=== PATIENT | male | born 1950 | race Two or more races ===

== ENCOUNTER 2016-07-20 11:21 | Inpatient (IN) | payer OTHER ==
[2016-07-20 15:11] VITALS: BMI 25.1
--- NOTE | 2016-07-20 18:42 | HP ---
CIWA Score - CIWA Score Nausea/Vomitin-Mild Nausea/No Vomiting Muscle Tremors: 4-Moderate,w/Arms Extend Anxiety: 4-Mod. Anxious/Guarded Agitation: 4-Moderately Restless Paroxysmal Sweats: 1-Minimal Palms Moist Orientation: 1-Uncertain about Date Tacttile Disturbances: 0-None Auditory Disturbances: 0-None Visual Disturbances: 0-None Headache: 0-None Present CIWA-Ar Total Score: 15 Admission ROS BHS - HPI Chief Complaint: WITHDRAWAL SX Allergies/Adverse Reactions: Allergies Allergy/AdvReac Type Severity Reaction Status Date / Time No Known Allergies Allergy Verified 07/20/16 17:36 History of Present Illness: 66 YEARS OLD MALE WITH LONG HISTORY OF ALCOHOL NICOTINE DEPENDENCE HAS POSITIVE PPD HEPATITIS C AND MULTIPLE MISSING TEETH DENIES MENTAL ILLNESS IS ADMITTED TO DETOX Exam Limitations: No Limitations - Ebola screening Have you traveled outside of the country in the last 21 days: No Have you had contact with anyone from an Ebola affected area: No Have you been sick,other than usual withdrawal symptoms: No Do you have a fever: No - Review of Systems Constitutional: Chills, Changes in sleep, Weight Stable EENT: reports: Cataracts (LEFT EYE), Dental Problems (MULTIPL TEETH MISSING) Respiratory: reports: No Symptoms reported Cardiac: reports: No Symptoms Reported GI: reports: Nausea, Poor Fluid Intake, Abdominal cramping : reports: No Symptoms Reported Musculoskeletal: reports: No Symptoms Reported Integumentary: reports: No Symptoms Reported Neuro: reports: Tremors Endocrine: reports: No Symptoms Reported Hematology: reports: No Symptoms Reported Psychiatric: reports: Judgement Intact, Mood/Affect Appropiate Other Systems: Reviewed and Negative Patient History - Patient Medical History Hx Anemia: No Hx Asthma: No Hx Chronic Obstructive Pulmonary Disease (COPD): No Hx Cancer: No Hx Cardiac Disorders: No Hx Congestive Heart Failure: No Hx Hypertension: No Hx Hypercholesterolemia: No Hx Pacemaker: No HX Cerebrovascular Accident: No Hx Seizures: No Hx Dementia: No Hx Diabetes: No Hx Gastrointestinal Disorders: No Hx Liver Disease: No Hx Genitourinary Disorders: No Hx Sexually Transmitted Disorders: Yes (gonorrhea at age 16) Hx Renal Disease (ESRD): No Hx Thyroid Disease: No Hx Human Immunodeficiency Virus (HIV): No Hx Hepatitis C: Yes Hx Depression: No Hx Suicide Attempt: No Hx Bipolar Disorder: No Hx Schizophrenia: No - Patient Surgical History Past Surgical History: Yes Hx Neurologic Surgery: No Hx Cataract Extraction: No (LEFT EYE NO SURGERY) Hx Cardiac Surgery: No Hx Lung Surgery: No Hx Breast Surgery: No Hx Breast Biopsy: No Hx Abdominal Surgery: Yes (umbilical hernia repair 2014) Hx Appendectomy: No Hx Cholecystectomy: No Hx Genitourinary Surgery: No Hx Orthopedic Surgery: No Other Surgical History: lens removal, right eye (trauma)in 2000/removal of callous, right foot Anesthesia Reaction: No - PPD History Previous Implant?: Yes Documented Results: Positive w/o proof Implanted On Prior R Admission?: No PPD to be Administered?: No - Smoking Cessation Smoking history: Current every day smoker Have you smoked in the past 12 months: Yes Aproximately how many cigarettes per day: 3 Cigars Per Day: 0 Hx Chewing Tobacco Use: No Initiated information on smoking cessation: Yes 'Breaking Loose' booklet given: 07/20/16 - Substance & Tx. History Hx Alcohol Use: Yes Hx Substance Use: No Substance Use Type: Alcohol Hx Substance Use Treatment: Yes - Substances Abused Alcohol-vodka Route: Oral Frequency: Daily Amount used: 1-2 pts. VOLKA Age of first use: 7 Date of Last Use: 07/20/16 Family Disease History - Family Disease History Family Disease History: CA: Mother ( KIDNEY), Other: Father (NO CONTACT) , Mother Other Family History: ONLY CHILD Admission Physical Exam BHS - Vital Signs Vital Signs: Vital Signs - 24 hr 07/20/16 15:10 Temperature 96 F L Pulse Rate 73 Respiratory 20 Rate Blood Pressure 103/68 - Physical General Appearance: Yes: Nourished, Appropriately Dressed, Mild Distress, Alcohol on Breath, Tremorous, Irritable, Sweating, Anxious HEENTM: Yes: Hearing grossly Normal, Normal ENT Inspection, Normocephalic, Normal Voice, Other (BLIND RIGHT EYE CATARACT LEFT EYE) Respiratory: Yes: Chest Non-Tender, Lungs Clear, Normal Breath Sounds, No Respiratory Distress, No Accessory Muscle Use Neck: Yes: Supple, Trachea in good position Breast: Yes: Breasts Symetrical Cardiology: Yes: Regular Rhythm, Regular Rate, S1, S2 Abdominal: Yes: Non Tender, Soft Genitourinary: Yes: Within Normal Limits Back: Yes: Normal Inspection Musculoskeletal: Yes: full range of Motion, Gait Steady, Back pain Extremities: Yes: Normal Inspection, Normal Range of Motion, Non-Tender, Tremors Neurological: Yes: Alert, Motor Strength 5/5, Normal Mood/Affect, Normal Response Integumentary: Yes: Warm Lymphatic: Yes: Within Normal Limits - Diagnostic (1) Alcohol dependence with uncomplicated withdrawal Current Visit: Yes Status: Acute (2) Hepatitis C antibody test positive Current Visit: Yes Status: Chronic Comment: SCHEDULED TO TREAT (3) Positive PPD, treated Current Visit: Yes Status: Resolved (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 - Detox or Rehab [facility] Level of Care: Medically Managed Detox Regimen/Protocol: Librium S Breath Alcohol Content Breath Alcohol Content: 0.033 Urine Drug Screen - Results Drug Screen Negative: Yes
[2016-07-20] MEDS ORDERED: ACETAMINOPHEN 325 MG TABLET (FP) PO PRN (18:47)
[2016-07-20] MEDS ORDERED: IBUPROFEN 400 MG TABLET (FP) PO PRN (18:47)
[2016-07-20] MEDS ORDERED: MAGNESIUM CITRATE 300 ML BOTTLE PO PRN (18:47)
[2016-07-20] MEDS ORDERED: MENTHOL/PHENOL 1 EACH UD MM PRN (18:47)
[2016-07-20] MEDS ORDERED: chlordiazePOXIDE HCL 25 MG CAPSULE PO PRN (18:47)
[2016-07-20] MEDS ORDERED: LOPERAMIDE HCL 2 MG CAPSULE PO PRN (18:47)
[2016-07-20] MEDS ORDERED: MAGNESIUM HYDROX 2400MG/30ML ORAL SUSPENSION 30 ML CUP PO PRN (18:47)
[2016-07-20] MEDS ORDERED: MAG HYDROX/AL HYDROX/SIMETH 30 ML UNIT-DOSE CUP PO PRN (18:47)
[2016-07-20] MEDS ORDERED: hydrOXYzine PAMOATE 50 MG CAPSULE (FP) PO PRN (18:47)
[2016-07-20] MEDS ORDERED: guaiFENesin/D-METHORPHAN HB 10 ML UNIT-DOSE CUPS PO PRN (18:47)
[2016-07-20] MEDS ORDERED: diphenhydrAMINE HCL 50 MG CAPSULE PO PRN (18:47)
[2016-07-20] MEDS ORDERED: NICOTINE POLACRILEX 2 MG GUM BC PRN (18:47)
[2016-07-20] MEDS ORDERED: P-EPHED 60MG/TRIPROLIDI 2.5MG TABLET PO PRN (18:47)
[2016-07-20] MEDS: THIAMINE HCL 100 MG TABLET (FP) PO SCH (21:21)
[2016-07-20] MEDS: chlordiazePOXIDE HCL 25 MG CAPSULE PO SCH (22:01)
[2016-07-20 23:46] LABS: URINE APPEARANCE CLEAR; URINE BILIRUBIN NEGATIVE (NEGATIVE); URINE BLOOD NEGATIVE (NEGATIVE); URINE COLOR LTYELLOW; URINE GLUCOSE (UA) NEGATIVE (NEGATIVE); URINE KETONE NEGATIVE (NEGATIVE); URINE LEUK ESTERASE NEGATIVE (NEGATIVE); URINE NITRITE NEGATIVE (NEGATIVE); URINE PROTEIN NEGATIVE (NEGATIVE); URINE UROBILINOGEN NEGATIVE E.U./dl (0.2-1.0)
[2016-07-21] MEDS: chlordiazePOXIDE HCL 25 MG CAPSULE PO SCH ×4 (05:21→22:14)
[2016-07-21 10:04] LABS: MCH 32.8 pg (25.7-33.7); MCHC 33.9 g/dl (32.0-35.9); MEAN CELL VOLUME 96.8 fl (80-96); MEAN PLT VOLUME 8.5 fl (7.5-11.1); PLATELET COUNT 273 K/MM3 (134-434); RDW 13.3 % (11.9-15.9); WHITE BLOOD COUNT 7.9 K/mm3 (4.0-10.0)
[2016-07-21] MEDS: PRENATAL VITAMINS W/ FOLIC ACID TABLET (FP) PO SCH (10:19)
[2016-07-21] MEDS: NICOTINE 14 MG/24 HOURS TOPICAL PATCH TD SCH (10:21)
[2016-07-21 10:38] LABS: ALBUMIN 4.4 g/dl (3.4-5.0); ALK PHOS 91 U/L (45-117); ANION GAP 11 (8-16); BILIRUBIN,TOTAL 0.9 mg/dL (0.2-1.0); CALCIUM 9.6 mg/dL (8.5-10.1); CO2 26 mmol/L (21-32); COCKROFT - GAULT 91.97; CREATININE 0.9 mg/dL (0.7-1.3); GLUCOSE,RANDOM 88 mg/dL (74-106); SGOT/AST 242 U/L (15-37); SGPT/ALT 365 U/L (12-78); TOT PROT 9.7 g/dl (6.4-8.2)
--- NOTE | 2016-07-21 12:20 | EKG ---
Test Reason : Blood Pressure : / mmHG Vent. Rate : 068 BPM Atrial Rate : 068 BPM P-R Int : 124 ms QRS Dur : 078 ms QT Int : 420 ms P-R-T Axes : 060 018 057 degrees QTc Int : 446 ms NORMAL SINUS RHYTHM NORMAL ECG NO PREVIOUS ECGS AVAILABLE Confirmed by MD ERIKA, ISATU ([id number]) on 07/21/2016 12:19:39 PM Referred By: Confirmed By:ISATU JAMES MD
--- NOTE | 2016-07-21 15:24 | PN ---
[facility] CIWA - CIWA Score Nausea/Vomitin-Mild Nausea/No Vomiting Muscle Tremors: 4-Moderate,w/Arms Extend Anxiety: 3 Agitation: 2 Paroxysmal Sweats: 3 Orientation: 0-Oriented Tacttile Disturbances: 3-Moderate Itch/Numb/Burn Auditory Disturbances: 2-Mild Harshness/Frighten Visual Disturbances: 1-Very Mild Sensitivity Headache: 0-None Present CIWA-Ar Total Score: 19 S Progress Note (SOAP) Subjective: Tremors, Sweating. Objective: PT. A & O X 3, OBSERVED AMBULATING ON UNIT. 07/21/16 15:25 Vital Signs Temperature 97.0 F L 07/21/16 13:03 Pulse Rate 58 L 07/21/16 13:03 Respiratory Rate 18 07/21/16 13:03 Blood Pressure 109/71 07/21/16 13:03 O2 Sat by Pulse Oximetry (%) Laboratory Last Values WBC 7.9 K/mm3 (4.0-10.0) 07/21/16 06:00 RBC 4.60 M/mm3 (4.00-5.60) 07/21/16 06:00 Hgb 15.1 GM/dL (11.7-16.9) 07/21/16 06:00 Hct 44.6 % (35.4-49) 07/21/16 06:00 MCV 96.8 fl (80-96) H 07/21/16 06:00 MCHC 33.9 g/dl (32.0-35.9) 07/21/16 06:00 RDW 13.3 % (11.9-15.9) 07/21/16 06:00 Plt Count 273 K/MM3 (134-434) 07/21/16 06:00 MPV 8.5 fl (7.5-11.1) 07/21/16 06:00 Sodium 139 mmol/L (136-145) 07/21/16 06:00 Potassium 4.4 mmol/L (3.5-5.1) 07/21/16 06:00 Chloride 102 mmol/L (98-107) 07/21/16 06:00 Carbon Dioxide 26 mmol/L (21-32) 07/21/16 06:00 Anion Gap 11 (8-16) 07/21/16 06:00 BUN 20 mg/dL (7-18) H 07/21/16 06:00 Creatinine 0.9 mg/dL (0.7-1.3) 07/21/16 06:00 Creat Clearance w eGFR > 60 (>60) 07/21/16 06:00 Random Glucose 88 mg/dL (74-106) 07/21/16 06:00 Calcium 9.6 mg/dL (8.5-10.1) 07/21/16 06:00 Total Bilirubin 0.9 mg/dL (0.2-1.0) 07/21/16 06:00 AST 242 U/L (15-37) H 07/21/16 06:00 ALT 365 U/L (12-78) H 07/21/16 06:00 Alkaline Phosphatase 91 U/L (45-117) 07/21/16 06:00 Total Protein 9.7 g/dl (6.4-8.2) H 07/21/16 06:00 Albumin 4.4 g/dl (3.4-5.0) 07/21/16 06:00 Urine Color Ltyellow 07/20/16 23:40 Urine Appearance Clear 07/20/16 23:40 Urine pH 5.0 (5.0-8.0) 07/20/16 23:40 Ur Specific [place] < 1.005 (1.005-1.025) L 07/20/16 23:40 Urine Protein Negative (NEGATIVE) 07/20/16 23:40 Urine Glucose (UA) Negative (NEGATIVE) 07/20/16 23:40 Urine Ketones Negative (NEGATIVE) 07/20/16 23:40 Urine Blood Negative (NEGATIVE) 07/20/16 23:40 Urine Nitrite Negative (NEGATIVE) 07/20/16 23:40 Urine Bilirubin Negative (NEGATIVE) 07/20/16 23:40 Urine Urobilinogen Negative E.U./dl (0.2-1.0) 07/20/16 23:40 Ur Leukocyte Esterase Negative (NEGATIVE) 07/20/16 23:40 RPR Titer Nonreactive (NONREACTIVE) 07/21/16 06:00 LABS NOTED. Assessment: 07/21/16 15:26 WITHDRAWAL SYMPTOMS. Plan: CONTINUE DETOX. HEPATIC FUNCTION PANEL ON 07/23/2016 FOR ELEVATED ADMISSION LIVER ENZYME LEVELS. ADVISED PATIENT TO FOLLOW-UP WITH PATIENT ACCESS AFTER DISCHARGE FROM DETOX FOR GENERAL MEDICAL ASSESSMENT AND FOR ABNORMAL ADMISSION LIVER ENZYME LEVELS.
[2016-07-21] MEDS: THIAMINE HCL 100 MG TABLET (FP) PO SCH (22:13)
[2016-07-22] MEDS: chlordiazePOXIDE HCL 25 MG CAPSULE PO SCH ×3 (05:51→17:26)
[2016-07-22] MEDS: PRENATAL VITAMINS W/ FOLIC ACID TABLET (FP) PO SCH (10:05)
[2016-07-22] MEDS: NICOTINE 14 MG/24 HOURS TOPICAL PATCH TD SCH (10:06)
--- NOTE | 2016-07-22 14:51 | PN ---
[facility] CIWA - CIWA Score Nausea/Vomitin-Mild Nausea/No Vomiting Muscle Tremors: 4-Moderate,w/Arms Extend Anxiety: 4-Mod. Anxious/Guarded Agitation: 4-Moderately Restless Paroxysmal Sweats: No Perspiration Orientation: 0-Oriented Tacttile Disturbances: 1-Very Mild Itch/Numbness Auditory Disturbances: 0-None Visual Disturbances: 0-None Headache: 2-Mild CIWA-Ar Total Score: 16 BHS Progress Note (SOAP) Subjective: Headache, nausea, anxious, interrupted sleep, sweating Objective: 07/22/16 14:46 Last Vital Signs Temp Pulse Resp BP Pulse Ox 98.1 F 70 18 112/72 07/22/16 13:12 07/22/16 13:12 07/22/16 13:12 07/22/16 13:12 Laboratory Tests 07/20/16 07/21/16 07/21/16 23:40 06:00 06:00 WBC 7.9 RBC 4.60 Hgb 15.1 Hct 44.6 MCV 96.8 H MCHC 33.9 RDW 13.3 Plt Count 273 MPV 8.5 Sodium 139 Potassium 4.4 Chloride 102 Carbon Dioxide 26 Anion Gap 11 BUN 20 H Creatinine 0.9 Creat Clearance w eGFR > 60 Random Glucose 88 Calcium 9.6 Total Bilirubin 0.9 AST 242 H ALT 365 H Alkaline Phosphatase 91 Total Protein 9.7 H Albumin 4.4 Urine Color Ltyellow Urine Appearance Clear Urine pH 5.0 Ur Specific [place] < 1.005 L Urine Protein Negative Urine Glucose (UA) Negative Urine Ketones Negative Urine Blood Negative Urine Nitrite Negative Urine Bilirubin Negative Urine Urobilinogen Negative Ur Leukocyte Esterase Negative RPR Titer 07/21/16 06:00 WBC RBC Hgb Hct MCV MCHC RDW Plt Count MPV Sodium Potassium Chloride Carbon Dioxide Anion Gap BUN Creatinine Creat Clearance w eGFR Random Glucose Calcium Total Bilirubin AST ALT Alkaline Phosphatase Total Protein Albumin Urine Color Urine Appearance Urine pH Ur Specific [place] Urine Protein Urine Glucose (UA) Urine Ketones Urine Blood Urine Nitrite Urine Bilirubin Urine Urobilinogen Ur Leukocyte Esterase RPR Titer Nonreactive Labs noted: AST 242, ALT 365 Assessment: 07/22/16 14:48 Withdrawal symptoms Noted with elevated AST/ALT Plan: Continue detox Elevated LFT's most likely due to hepatitis C and alcohol dependence, repeat LFT panel in AM (already ordered)
[2016-07-22] MEDS: THIAMINE HCL 100 MG TABLET (FP) PO SCH (22:05)
[2016-07-22] MEDS: chlordiazePOXIDE 5 MG CAPSULE PO SCH (22:05)
[2016-07-23] MEDS: chlordiazePOXIDE 5 MG CAPSULE PO SCH ×3 (05:29→17:12)
[2016-07-23] MEDS: PRENATAL VITAMINS W/ FOLIC ACID TABLET (FP) PO SCH (10:05)
[2016-07-23] MEDS: NICOTINE 14 MG/24 HOURS TOPICAL PATCH TD SCH (10:05)
--- NOTE | 2016-07-23 11:04 | PN ---
BHS Progress Note (SOAP) Subjective: Sweating,interrupted sleep,restless. Objective: 07/23/16 11:00 Laboratory Tests 07/20/16 07/21/16 07/21/16 23:40 06:00 06:00 WBC 7.9 RBC 4.60 Hgb 15.1 Hct 44.6 MCV 96.8 H MCHC 33.9 RDW 13.3 Plt Count 273 MPV 8.5 Sodium 139 Potassium 4.4 Chloride 102 Carbon Dioxide 26 Anion Gap 11 BUN 20 H Creatinine 0.9 Creat Clearance w eGFR > 60 Random Glucose 88 Calcium 9.6 Total Bilirubin 0.9 AST 242 H ALT 365 H Alkaline Phosphatase 91 Total Protein 9.7 H Albumin 4.4 Urine Color Ltyellow Urine Appearance Clear Urine pH 5.0 Ur Specific [place] < 1.005 L Urine Protein Negative Urine Glucose (UA) Negative Urine Ketones Negative Urine Blood Negative Urine Nitrite Negative Urine Bilirubin Negative Urine Urobilinogen Negative Ur Leukocyte Esterase Negative RPR Titer 07/21/16 06:00 WBC RBC Hgb Hct MCV MCHC RDW Plt Count MPV Sodium Potassium Chloride Carbon Dioxide Anion Gap BUN Creatinine Creat Clearance w eGFR Random Glucose Calcium Total Bilirubin AST ALT Alkaline Phosphatase Total Protein Albumin Urine Color Urine Appearance Urine pH Ur Specific [place] Urine Protein Urine Glucose (UA) Urine Ketones Urine Blood Urine Nitrite Urine Bilirubin Urine Urobilinogen Ur Leukocyte Esterase RPR Titer Nonreactive labs noted, hepatic enzymes pending Assessment: 07/23/16 11:01 Withdrawal sx. Plan: continue detox
[2016-07-23 14:37] LABS: ALBUMIN 3.8 g/dl (3.4-5.0); BILIRUBIN,DIRECT 0.2 mg/dL (0.0-0.2); BILIRUBIN,TOTAL 0.4 mg/dL (0.2-1.0); TOT PROT 8.8 g/dl (6.4-8.2)
[2016-07-23] MEDS: THIAMINE HCL 100 MG TABLET (FP) PO SCH (22:11)
[2016-07-23] MEDS: chlordiazePOXIDE HCL 10 MG CAPSULE PO SCH (22:12)
[2016-07-24] MEDS: chlordiazePOXIDE HCL 10 MG CAPSULE PO SCH ×2 (05:31→10:04)
[2016-07-24 09:37] VITALS: BP 107/73; PULSE 97; TEMP 98.1
[2016-07-24] MEDS: PRENATAL VITAMINS W/ FOLIC ACID TABLET (FP) PO SCH (10:04)
[2016-07-24] MEDS: NICOTINE 14 MG/24 HOURS TOPICAL PATCH TD SCH (10:04)
--- NOTE | 2016-07-24 10:08 | DS ---
[facility] Detox Discharge Summary Admission Date: 07/20/16 Discharge Date: 07/24/16 - History Present History: Alcohol Dependence Additional Comments: DETOX COMPLETED.ALERT O X 3. NAD Pertinent Past History: CATARACT, LEFT EYE BLIND RIGHT EYE HEP C - Physical Exam Results Vital Signs: Vital Signs Temperature 98.1 F 07/24/16 09:36 Pulse Rate 97 H 07/24/16 09:36 Respiratory Rate 18 07/24/16 09:36 Blood Pressure 107/73 07/24/16 09:36 O2 Sat by Pulse Oximetry (%) Pertinent Admission Physical Exam Findings: WITHDRAWAL SX - Treatment Hospital Course: Detox Protocol Followed, Detoxed Safely, Responded well, Discharged Condition Good, Rehab Referral Accepted Patient has Accepted a Rehab Referral to: [address] [place] [address] REHAB - Medication Discharge Medications: Ambulatory Orders NK [No Known Home Medication] 07/20/16 - Diagnosis (1) Alcohol dependence with uncomplicated withdrawal Current Visit: Yes Status: Acute (2) Nicotine dependence Current Visit: Yes Status: Acute Qualifiers: Nicotine product type: cigarettes Substance use status: in withdrawal Qualified Code(s): F17.213 - Nicotine dependence, cigarettes, with withdrawal (3) Blind right eye Current Visit: Yes Status: Chronic (4) Cataract, left eye Current Visit: Yes Status: Chronic Qualifiers: Cataract type: other Qualified Code(s): H26.8 - Other specified cataract (5) Hepatitis C antibody test positive Current Visit: Yes Status: Chronic (6) Positive PPD, treated Current Visit: Yes Status: Resolved - AMA Did Patient Leave Against Medical Advice: No
== END 2016-07-24 12:25 | disposition other institution (70) | DRG 775 ==
LOC: YASAS 11:21 → Y3N 18:27
PROVIDERS: ADMIT Internal Medicine; ATTEND Internal Medicine
PROC: HZ2ZZZZ Detoxification Services for Substance Abuse Treatment (ICD-10-PCS; principal; 2016-07-20)
DX: F10.230 Alcohol dependence with withdrawal, uncomplicated (principal); F17.213 Nicotine dependence, cigarettes, with withdrawal; H54.41 Blindness, right eye, normal vision left eye; H26.8 Other specified cataract; B18.2 Chronic viral hepatitis C; R76.11 Nonspecific reaction to tuberculin skin test without active tuberculosis; R74.0 Nonspecific elevation of levels of transaminase and lactic acid dehydrogenase [LDH]; Z87.438 Personal history of other diseases of male genital organs
CPT/HCPCS: 36415; 71020-TC; 80053; 80076; 81003; 85027; 86593; 93005; 93010

== ENCOUNTER 2016-07-24 12:26 | Inpatient (IN) | payer OTHER ==
[2016-07-24] MEDS ORDERED: MENTHOL/PHENOL 1 EACH UD MM PRN (14:49)
[2016-07-24] MEDS ORDERED: P-EPHED 60MG/TRIPROLIDI 2.5MG TABLET PO PRN (14:49)
[2016-07-24] MEDS ORDERED: MAGNESIUM CITRATE 300 ML BOTTLE PO PRN (14:49)
[2016-07-24] MEDS ORDERED: guaiFENesin/D-METHORPHAN HB 10 ML UNIT-DOSE CUPS PO PRN (14:49)
[2016-07-24] MEDS ORDERED: MAG HYDROX/AL HYDROX/SIMETH 30 ML UNIT-DOSE CUP PO PRN (14:49)
[2016-07-24] MEDS ORDERED: MAGNESIUM HYDROX 2400MG/30ML ORAL SUSPENSION 30 ML CUP PO PRN (14:49)
[2016-07-24] MEDS ORDERED: ACETAMINOPHEN 325 MG TABLET (FP) PO PRN (14:49)
[2016-07-24] MEDS ORDERED: LOPERAMIDE HCL 2 MG CAPSULE PO PRN (14:49)
[2016-07-24] MEDS ORDERED: IBUPROFEN 400 MG TABLET (FP) PO PRN (14:49)
[2016-07-24] MEDS ORDERED: hydrOXYzine PAMOATE 50 MG CAPSULE (FP) PO PRN (14:49)
--- NOTE | 2016-07-24 14:51 | HP ---
[facility] Rehab Assess/Revision - Admission History Ad[facility] to Rehab [facility] Date of Admission to Rehab: 07/24/16 - Findings Detox History & Physical reviewed: Yes Concur with findings: Yes Comments/Additional Findings: FOR REHAB PROTOCOL
[2016-07-24] MEDS: THIAMINE HCL 100 MG TABLET (FP) PO SCH (21:43)
[2016-07-24] MEDS: diphenhydrAMINE HCL 50 MG CAPSULE PO PRN (21:43)
--- NOTE | 2016-07-25 06:49 | HP ---
Psychiatrist Admission - Data Date of interview: 07/25/16 Admission source: 3N Identifying data: This is the [facility] admission for this 66 years old single male, unemployed on public assistance, homeless Medical History: Significant for treatment for Hep C, treatment for Gonorrhea, Cataract left eye and surgery for umbilical hernia, lens removed right eye after trumatic injury(blind right eye) and removal of callous right foot. Smokes 3 cigarettes daily Psychiatric History: Denies history of previous psychiatric treatment Physical/Sexual Abuse/Trauma History: Denies history of emotional, physical or sexual abuse as well as DV relationship Additional Comment: Reports history of multiple arrests including one felony conviction. Denies being on parole/probation at present Vital Signs: Vital Signs - 24 hr 07/24/16 07/25/16 07/25/16 13:30 00:30 03:30 Temperature 98.6 F Pulse Rate 63 Respiratory 16 18 18 Rate Blood Pressure 106/66 Allergies/Adverse Reactions: Allergies Allergy/AdvReac Type Severity Reaction Status Date / Time No Known Allergies Allergy Verified 07/24/16 13:29 Date of last physical exam: 07/20/16 Concur with the findings of this exam: Yes - Substance Abuse/Tx History Hx Alcohol Use: Yes Hx Substance Use: No Substance Use Type: Alcohol (Started drinking alcohol at age 7, consumes 1-2 pints of vodka daily. Last drink on 07/20/16) Hx Substance Use Treatment: Yes (7 previous inpt detox. First inpt rehab) - Admission Criteria Previous failed treatment: No Poor recovery environment: Yes Comorbidities: Yes Lacks judgement: Yes Mental Status Exam - Mental Status Exam Alert and Oriented to: Time, Place, Person Cognitive Function: Fair Patient Appearance: Well Groomed Mood: Hopeful, Euthymic Affect: Appropriate Patient Behavior: Cooperative Speech Pattern: Clear Voice Loudness: Normal Thought Process: Intact, Goal Oriented Thought Disorder: Not Present Hallucinations: Denies Suicidal Ideation: Denies Homicidal Ideation: Denies Insight/Judgement: Fair Sleep: Well Appetite: Good Muscle strength/Tone: Normal Gait/Station: Normal Psychiatric Findings - Problem List ([place] 1, 2,3) (1) Alcohol dependence with uncomplicated withdrawal Current Visit: No Status: Acute (2) Nicotine dependence Current Visit: No Status: Acute Qualifiers: Nicotine product type: cigarettes Substance use status: in withdrawal Qualified Code(s): F17.213 - Nicotine dependence, cigarettes, with withdrawal (3) Blind right eye Current Visit: No Status: Chronic (4) Cataract, left eye Current Visit: No Status: Chronic Qualifiers: Cataract type: other Qualified Code(s): H26.8 - Other specified cataract (5) Hepatitis C antibody test positive Current Visit: No Status: Chronic Comment: SCHEDULED TO TREAT - Initial Treatment Plan Initial Treatment Plan: Monitor progress
[2016-07-25] MEDS: PRENATAL VITAMINS W/ FOLIC ACID TABLET (FP) PO SCH (10:52)
[2016-07-25] MEDS: THIAMINE HCL 100 MG TABLET (FP) PO SCH (21:44)
[2016-07-25] MEDS: diphenhydrAMINE HCL 50 MG CAPSULE PO PRN (21:45)
[2016-07-26] MEDS: EPCLUSA PO SCH (10:32)
[2016-07-26] MEDS: PRENATAL VITAMINS W/ FOLIC ACID TABLET (FP) PO SCH (10:33)
[2016-07-26] MEDS: THIAMINE HCL 100 MG TABLET (FP) PO SCH (22:02)
[2016-07-26] MEDS: diphenhydrAMINE HCL 50 MG CAPSULE PO PRN (22:03)
[2016-07-27] MEDS: EPCLUSA PO SCH (10:43)
[2016-07-27] MEDS: PRENATAL VITAMINS W/ FOLIC ACID TABLET (FP) PO SCH (10:43)
[2016-07-27] MEDS: diphenhydrAMINE HCL 50 MG CAPSULE PO PRN (21:52)
[2016-07-27] MEDS: THIAMINE HCL 100 MG TABLET (FP) PO SCH (21:52)
[2016-07-28] MEDS: EPCLUSA PO SCH (10:16)
[2016-07-28] MEDS: PRENATAL VITAMINS W/ FOLIC ACID TABLET (FP) PO SCH (10:17)
[2016-07-28] MEDS: THIAMINE HCL 100 MG TABLET (FP) PO SCH (21:34)
[2016-07-29] MEDS: PRENATAL VITAMINS W/ FOLIC ACID TABLET (FP) PO SCH (10:31)
[2016-07-29] MEDS: EPCLUSA PO SCH (10:33)
[2016-07-29] MEDS: THIAMINE HCL 100 MG TABLET (FP) PO SCH (21:56)
[2016-07-30] MEDS: EPCLUSA PO SCH (10:27)
[2016-07-30] MEDS: PRENATAL VITAMINS W/ FOLIC ACID TABLET (FP) PO SCH (10:27)
[2016-07-30] MEDS: THIAMINE HCL 100 MG TABLET (FP) PO SCH (22:09)
[2016-07-30] MEDS: diphenhydrAMINE HCL 50 MG CAPSULE PO PRN (22:10)
[2016-07-31] MEDS: PRENATAL VITAMINS W/ FOLIC ACID TABLET (FP) PO SCH (10:47)
[2016-07-31] MEDS: EPCLUSA PO SCH (10:47)
[2016-07-31] MEDS: THIAMINE HCL 100 MG TABLET (FP) PO SCH (21:59)
[2016-08-01] MEDS: PRENATAL VITAMINS W/ FOLIC ACID TABLET (FP) PO SCH (10:26)
[2016-08-01] MEDS: EPCLUSA PO SCH (10:26)
[2016-08-01] MEDS: THIAMINE HCL 100 MG TABLET (FP) PO SCH (21:55)
[2016-08-02] MEDS: PRENATAL VITAMINS W/ FOLIC ACID TABLET (FP) PO SCH (10:37)
[2016-08-02] MEDS: EPCLUSA PO SCH (10:37)
[2016-08-02] MEDS: THIAMINE HCL 100 MG TABLET (FP) PO SCH (22:06)
[2016-08-03] MEDS: EPCLUSA PO SCH (10:43)
[2016-08-03] MEDS: PRENATAL VITAMINS W/ FOLIC ACID TABLET (FP) PO SCH (10:43)
[2016-08-03] MEDS: THIAMINE HCL 100 MG TABLET (FP) PO SCH (22:15)
[2016-08-04] MEDS: PRENATAL VITAMINS W/ FOLIC ACID TABLET (FP) PO SCH (10:36)
[2016-08-04] MEDS: EPCLUSA PO SCH (10:37)
[2016-08-04] MEDS: THIAMINE HCL 100 MG TABLET (FP) PO SCH (22:19)
[2016-08-05] MEDS: PRENATAL VITAMINS W/ FOLIC ACID TABLET (FP) PO SCH (10:27)
[2016-08-05] MEDS: EPCLUSA PO SCH (10:27)
[2016-08-05] MEDS: THIAMINE HCL 100 MG TABLET (FP) PO SCH (22:11)
[2016-08-06] MEDS: EPCLUSA PO SCH (10:37)
[2016-08-06] MEDS: PRENATAL VITAMINS W/ FOLIC ACID TABLET (FP) PO SCH (10:37)
[2016-08-06] MEDS: THIAMINE HCL 100 MG TABLET (FP) PO SCH (22:15)
[2016-08-07] MEDS: PRENATAL VITAMINS W/ FOLIC ACID TABLET (FP) PO SCH (10:39)
[2016-08-07] MEDS: EPCLUSA PO SCH (10:40)
[2016-08-07] MEDS: THIAMINE HCL 100 MG TABLET (FP) PO SCH (22:04)
[2016-08-08] MEDS: EPCLUSA PO SCH (11:00)
[2016-08-08] MEDS: PRENATAL VITAMINS W/ FOLIC ACID TABLET (FP) PO SCH (11:00)
[2016-08-08] MEDS: THIAMINE HCL 100 MG TABLET (FP) PO SCH (22:10)
[2016-08-09 07:11] VITALS: BP 110/81; PULSE 72; TEMP 97.6
[2016-08-09] MEDS: EPCLUSA PO SCH (10:02)
[2016-08-09] MEDS: PRENATAL VITAMINS W/ FOLIC ACID TABLET (FP) PO SCH (10:03)
--- NOTE | 2016-08-09 10:34 | PN ---
Psychiatric Progress Note Vital Signs: Vital Signs Period Temp Pulse Resp BP Sys/Schaeffer Pulse Ox Last 24 Hr 97.6 F 72 18-18 110/81 Date of Session: 08/09/16 Chief Complaint:: discharge visit HPI: Patient has addressed alcohol, nicotine dependence. ROS: Cataract left eye, blind on right side, Hep C, liver cccirrhosis. Current Medications: Active Medications Generic Name Dose Route Start Last Admin Trade Name Freq PRN Reason Stop Dose Admin Acetaminophen 650 mg 07/24/16 14:49 Tylenol - PO Q4H PRN FEVER OR PAIN Al Hydroxide/Mg Hydroxide 30 ml 07/24/16 14:49 Mylanta Oral Suspension - PO Q6H PRN DYSPEPSIA Diphenhydramine HCl 50 mg 07/24/16 14:49 07/30/16 22:10 Benadryl - PO 50 mg HSMR1 PRN Administration FOR ITCHING Eucalyptus/Menthol/Phenol/Sorbitol 1 each 07/24/16 14:49 Cepastat Lozenge - MM Q4H PRN SORE THROAT Guaifenesin 10 ml 07/24/16 14:49 Robitussin Dm - PO Q6H PRN COUGH Hydroxyzine Pamoate 50 mg 07/24/16 14:49 Vistaril - PO Q4H PRN AGITATION Ibuprofen 400 mg 07/24/16 14:49 Motrin - PO Q6H PRN PAIN Loperamide HCl 4 mg 07/24/16 14:49 Imodium - PO Q6H PRN DIARRHEA Magnesium Hydroxide 30 ml 07/24/16 14:49 Milk Of Magnesia - PO DAILY PRN CONSTIPATION Non-Formulary Medication 0 mg 07/26/16 10:00 08/09/16 10:02 Epclusa 400mg/100mg PO 08/23/16 09:59 400 mg DAILY MARIA M Administration Multivit/Folic Acid/Iron 1 tab 07/25/16 10:00 08/09/16 10:03 Vitamins (Sjr) - PO 1 tab DAILY MARIA M Administration Pseudoephedrine/Triprolidine 1 combo 07/24/16 14:49 Actifed - PO TID PRN NASAL CONGESTION Thiamine HCl 100 mg 07/24/16 22:00 08/08/16 22:10 Vitamin B1 - PO 100 mg HS MARIA M Administration Current Side Effect: No Lab tests ordered: No Lab tests reviewed: Yes Provider note:: Patient has acompleted today his treatment and met his goals will continue to address his issues at [facility] outpatient program. Patient gained insights into his problems and motivated to continue maintain abstinence, patient verbalized his resolution to be adherent to every aspects of his sfatrecare plans. Patient is stable for discharge today. Total face to face time:: 35 Mental Status Exam - Mental Status Exam Alert and Oriented to: Time, Place, Person Cognitive Function: Good Patient Appearance: Well Groomed Mood: Hopeful Affect: Appropriate, Mood Congruent Patient Behavior: Appropriate, Cooperative Speech Pattern: Clear, Appropriate Voice Loudness: Normal Thought Process: Intact, Goal Oriented Thought Disorder: Not Present Hallucinations: Denies Suicidal Ideation: Denies Homicidal Ideation: Denies Insight/Judgement: Fair Sleep: Fair Appetite: Fair Muscle strength/Tone: Normal Gait/Station: Normal Psychiatric Treatment Plan - Problem List (1) Nicotine dependence Current Visit: No Qualifiers: Nicotine product type: cigarettes Substance use status: in withdrawal Qualified Code(s): F17.213 - Nicotine dependence, cigarettes, with withdrawal (2) Blind right eye Current Visit: No (3) Cataract, left eye Current Visit: No Qualifiers: Cataract type: other Qualified Code(s): H26.8 - Other specified cataract (4) Hepatitis C antibody test positive Current Visit: No Comment: SCHEDULED TO TREAT (5) Alcohol dependence Current Visit: Yes
== END 2016-08-09 10:55 | disposition home or self-care (01) | DRG 772 ==
LOC: YASAS 12:26 → Y5N 12:29
PROVIDERS: ADMIT Psychiatry & Neurology Psychiatry; ATTEND Psychiatry & Neurology Psychiatry
PROC: HZ42ZZZ Group Counseling for Substance Abuse Treatment, Cognitive-Behavioral (ICD-10-PCS; principal; 2016-08-09)
DX: F10.230 Alcohol dependence with withdrawal, uncomplicated (principal); F17.213 Nicotine dependence, cigarettes, with withdrawal; B18.2 Chronic viral hepatitis C; H26.8 Other specified cataract; H54.41 Blindness, right eye, normal vision left eye

== ENCOUNTER 2019-09-02 08:46 | Inpatient (IN) | payer OTHER ==
--- NOTE | 2019-09-02 08:59 | BHS.RME ---
Substance Use & Tx History - Substance Use History Alcohol Substance amount: 1 pint vodka Frequency of use: Daily Substance route: Oral Date of Last Use: 09/01/19 Marijuana/Hashish Substance amount: $5 Frequency of use: Daily Substance route: Smoking Date of Last Use: 08/31/19 - Last Treatment Date of last treatment: 07/19-08/20/19 Treatment type: Substance Use Disorder ([facility]) Where was last treatment: Detox Physical/Psych/Mental Status - Behavior General Behavior: Increased activity (restlessness, agitation) Eye Contact: Normal - Cooperativeness Cooperativeness: Cooperative - Thinking Thought Processes: Tight, Logical, Goal Directed - Physical Health Problems Is patient presently having any pain?: No Does patient presently have any injuries (include location): No Does patient currently have a fever: No Is patient : No CIWA Nausea/Vomitin-No Nausea/No Vomiting Muscle Tremors: 4-Moderate,w/Arms Extend Anxiety: 4-Mod. Anxious/Guarded Agitation: 3 Paroxysmal Sweats: 4-Forehead w/Sweat Beads Orientation: 0-Oriented Tacttile Disturbances: 1-Very Mild Itch/Numbness Auditory Disturbances: 0-None Visual Disturbances: 0-None Headache: 0-None Present CIWA-Ar Total Score: 16
--- NOTE | 2019-09-02 09:19 | HP ---
CIWA Score Nausea/Vomitin-No Nausea/No Vomiting Muscle Tremors: 4-Moderate,w/Arms Extend Anxiety: 4-Mod. Anxious/Guarded Agitation: 3 Paroxysmal Sweats: 4-Forehead w/Sweat Beads Orientation: 0-Oriented Tacttile Disturbances: 1-Very Mild Itch/Numbness Auditory Disturbances: 0-None Visual Disturbances: 0-None Headache: 0-None Present CIWA-Ar Total Score: 16 - Admission Criteria OASAS Guidelines: Admission for Medically Managed Detox: Requires at least one of the followin. CIWA greater than 12 2. Seizures within the past 24 hours 3. Delirium tremens within the past 24 hours 4. Hallucinations within the past 24 hours 5. Acute intervention needed for co occurring medical disorder 6. Acute intervention needed for co occurring psychiatric disorder 7. Severe withdrawal that cannot be handled at a lower level of care (continued vomiting, continued diarrhea, abnormal vital signs) requiring intravenous medication and/or fluids 8. Admitting History and Physical - Admission Chief Complaint: Mr. Harris is a 69 yo gentleman who presents to [facility] requesting admission to detox for alcohol use disorder. History of Present Illness: Mr. Harirs is a 69 yo gentleman who presents to [facility] requesting admission to detox for alcohol use disorder. He comes directly from [facility] where he was treated today and released. He received Librium at 4:30 am for alcohol withdrawal. Additionally he was treated with IV fluids. This provider called [facility] ED, transferred 3 x, verbally: COVID negative today, they are faxing results. PMH: HCV, right ey blind, left cataract, DDD, head and facial njury PSH: umbilical hernia repair, right foot surgery Psych: none SOC: homeless, streets, [place] longterm Legal: none Substance Use History Alcohol Substance amount: 1 pint vodka Frequency of use: Daily Substance route: Oral Date of Last Use: 09/01/19 First drink age 8 y. No seizures. Has a hx of blackouts. 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 Marijuana/Hashish Substance amount: $5 Frequency of use: Daily Substance route: Smoking Date of Last Use: 08/31/19 First use age 13y - Last Treatment Date of last treatment: 07/19-08/20/19 Treatment type: Substance Use Disorder ([facility]) Where was last treatment: Detox History Source: Patient Limitations to Obtaining History: No Limitations - Smoking History Smoking history: Former smoker Have you smoked in the past 12 months: Yes Aproximately how many cigarettes per day: 3 - Alcohol/Substance Use Hx Alcohol Use: Yes Admission [facility] Allergies/Adverse Reactions: Allergies Allergy/AdvReac Type Severity Reaction Status Date / Time No Known Allergies Allergy Verified 09/02/19 09:20 Exam Limitations: No Limitations - Ebola screening Have you traveled outside of the country in the last 21 days: No Have you been sick,other than usual withdrawal symptoms: No Do you have a fever: No - Review of Systems Constitutional: Loss of Appetite, Unintentional Wgt. Loss EENT: reports: Other (right eye blind, left eye cataract) Cardiac: reports: No Symptoms Reported GI: reports: Diarrhea (black stool yesterday) : reports: No Symptoms Reported Musculoskeletal: reports: Other (fell 3 weeks ago, scraped bilateral knees and right elbow) Integumentary: reports: Other (scabs over superficial abrasions knees and left elbow) Neuro: reports: No Symptoms reported Endocrine: reports: No Symptoms Reported Hematology: reports: No Symptoms Reported Psychiatric: reports: Anxious Patient History - Patient Medical History Hx Anemia: No Hx Asthma: No Hx Chronic Obstructive Pulmonary Disease (COPD): No Hx Cancer: No Hx Cardiac Disorders: No Hx Congestive Heart Failure: No Hx Hypertension: No Hx Hypercholesterolemia: No Hx Pacemaker: No HX Cerebrovascular Accident: No Hx Seizures: No Hx Dementia: No Hx Diabetes: No Hx Gastrointestinal Disorders: No Hx Liver Disease: No Hx Genitourinary Disorders: No Hx Sexually Transmitted Disorders: No Hx Renal Disease (ESRD): No Hx Thyroid Disease: No Hx Human Immunodeficiency Virus (HIV): No Hx Hepatitis C: Yes Hx Depression: No Hx Suicide Attempt: No Hx Bipolar Disorder: No Hx Schizophrenia: No - Patient Surgical History Past Surgical History: Yes Hx Neurologic Surgery: No Hx Cataract Extraction: No (LEFT EYE NO SURGERY) Hx Cardiac Surgery: No Hx Lung Surgery: No Hx Breast Surgery: No Hx Breast Biopsy: No Hx Abdominal Surgery: Yes (umbilical hernia repair 2014) Hx Appendectomy: No Hx Cholecystectomy: No Hx Genitourinary Surgery: No Hx Section: No Hx Orthopedic Surgery: Yes Other Surgical History: lens removal, right eye (trauma)in 2000/removal of callous, right foot Anesthesia Reaction: No - Smoking Cessation Smoking history: Former smoker Have you smoked in the past 12 months: Yes Aproximately how many cigarettes per day: 3 If you are a former smoker, when did you quit?: 08/20/2019 Cigars Per Day: 0 Hx Chewing Tobacco Use: No Initiated information on smoking cessation: No Admission Physical Exam [facility] - Physical General Appearance: Yes: Nourished, Disheveled HEENTM: Yes: Hearing grossly Normal, Other (blind right eye, narrow right palpebral fissure) Respiratory: Yes: Lungs Clear, Normal Breath Sounds Neck: Yes: Within Normal Limits, Supple Breast: Yes: Breast Exam Deferred Cardiology: Yes: Regular Rhythm, Regular Rate, S1, S2 Abdominal: Yes: Non Tender, Soft, Increased Bowel Sounds, Protuberent Genitourinary: Yes: Other (deferred) Back: Yes: Normal Inspection Musculoskeletal: Yes: Other (mildly unsteady with the use of a cane) Extremities: Yes: Normal Inspection, Non-Tender Neurological: Yes: Alert, Normal Response Integumentary: Yes: Dry, Warm, Other (scabs over superficial abrasions both knees, left >right, left elbow, all ~1") - Diagnostic (1) Alcohol dependence with uncomplicated withdrawal Current Visit: Yes Status: Acute (2) Blind right eye Current Visit: No Status: Chronic Qualifiers: Left eye visual impairment category: left - unspecified impairment Qualified Code(s): H54.40 - Blindness, one eye, unspecified eye (3) Hepatitis C Current Visit: No Status: Chronic Qualifiers: Viral hepatitis chronicity: unspecified (4) History of positive PPD Current Visit: No Status: Chronic (5) Nicotine dependence, cigarettes, in remission Current Visit: No Status: Chronic Comment: Stopped 1 month ago (6) Use of cane as ambulatory aid Current Visit: Yes Status: Chronic (7) Cannabis dependence Current Visit: Yes Status: Acute Cleared for Admission S - Detox or Rehab [facility] Level of Care: Medically Managed Detox Regimen/Protocol: Librium Breathalyzer - Breathalyzer Breathalyzer: 0.062 Urine Drug Screen - Test Device Lot number: [id number] Expiration date: 11/01/20 - Control Is test valid?: Yes - Results Drug screen NEGATIVE: No Urine drug screen results: THC-Marijuana, BZO-Benzodiazepines Inpatient Rehab Admission - Rehab Decision to Admit Inpatient rehab admission?: No
[2019-09-02] MEDS ORDERED: ONDANSETRON *ODT* 4 MG TABLET SL PRN (09:29)
[2019-09-02] MEDS ORDERED: ACETAMINOPHEN 325 MG TABLET (FP) PO PRN ×2 (09:29)
[2019-09-02] MEDS ORDERED: MAG HYDROX/AL HYDROX/SIMETH 30 ML UNIT-DOSE CUP PO PRN (09:29)
[2019-09-02] MEDS ORDERED: IBUPROFEN 400 MG TABLET (FP) PO PRN (09:29)
[2019-09-02] MEDS ORDERED: BISMUTH SUBSALICYLATE 262 MG/15 ML BTL PO PRN (09:29)
[2019-09-02] MEDS ORDERED: NICOTINE POLACRILEX 2 MG GUM BUC PRN (09:29)
[2019-09-02] MEDS ORDERED: MENTHOL/PHENOL 1 EACH UD MM PRN (09:29)
[2019-09-02] MEDS ORDERED: MAGNESIUM CITRATE 300 ML BOTTLE PO PRN (09:29)
[2019-09-02] MEDS ORDERED: METHOCARBAMOL 500 MG TABLET PO PRN (09:29)
[2019-09-02] MEDS ORDERED: MAGNESIUM HYDROX 2400MG/30ML ORAL SUSPENSION 30 ML CUP PO PRN (09:29)
[2019-09-02] MEDS ORDERED: chlordiazePOXIDE HCL 25 MG CAPSULE PO PRN (09:29)
[2019-09-02 09:53] VITALS: BMI 24.5
[2019-09-02] MEDS: hydrOXYzine PAMOATE 25 MG CAPSULE (FP) PO SCH ×4 (11:13→22:28)
[2019-09-02] MEDS: PRENATAL VITAMINS W/ FOLIC ACID TABLET (FP) PO SCH (11:13)
[2019-09-02] MEDS: NICOTINE 7 MG/24 HOURS TOPICAL PATCH TD SCH (11:13)
[2019-09-02] MEDS: chlordiazePOXIDE HCL 25 MG CAPSULE PO SCH ×3 (11:13→22:29)
[2019-09-02 15:41] LABS: HEMATOCRIT 39.4 % (35.4-49); HEMOGLOBIN 13.1 GM/dL (11.7-16.9); MCH 32.4 pg (25.7-33.7); MCHC 33.2 g/dl (32.0-35.9); MEAN CELL VOLUME 97.4 fl (80-96); MEAN PLT VOLUME 7.8 fl (7.5-11.1); PLATELET COUNT 237 K/MM3 (134-434); RBC 4.04 M/mm3 (4.00-5.60); RDW 14.1 % (11.9-15.9)
[2019-09-02 15:52] LABS: ALBUMIN 4.2 g/dl (3.4-5.0); BILIRUBIN,TOTAL 1.1 mg/dL (0.2-1); BLOOD UREA NITROGEN 10.7 mg/dL (7-18); CALCIUM 8.8 mg/dL (8.5-10.1); CREATININE 0.9 mg/dL (0.55-1.3); POTASSIUM 4.2 mmol/L (3.5-5.1)
[2019-09-02] MEDS: THIAMINE HCL 100 MG TABLET (FP) PO SCH (22:28)
[2019-09-02] MEDS: MELATONIN 5 MG TABLETS PO SCH (22:28)
[2019-09-03] MEDS: chlordiazePOXIDE HCL 25 MG CAPSULE PO SCH ×4 (07:08→22:59)
[2019-09-03] MEDS: hydrOXYzine PAMOATE 25 MG CAPSULE (FP) PO SCH ×5 (07:10→22:59)
--- NOTE | 2019-09-03 09:35 | PN ---
[facility] CIWA - CIWA Score Nausea/Vomitin-No Nausea/No Vomiting Muscle Tremors: 4-Moderate,w/Arms Extend Anxiety: 4-Mod. Anxious/Guarded Agitation: 4-Moderately Restless Paroxysmal Sweats: 1-Minimal Palms Moist Orientation: 0-Oriented Tacttile Disturbances: 0-None Auditory Disturbances: 0-None Visual Disturbances: 2-Mild Sensitivity Headache: 0-None Present CIWA-Ar Total Score: 15 BHS Progress Note (SOAP) Subjective: Pt is a 69 y/o male admitted to detox for alcohol withdrawal sx on Librium regimen. c/o anxiety states "i could be better". diarrhea tremors decreased appetite sensitivity to light Objective: 09/03/19 11:49 Vital Signs 09/03/19 06:50 Temperature 97.6 F Pulse Rate 51 L Respiratory 18 Rate Blood Pressure 109/66 O2 Sat by Pulse 95 Oximetry (%) Laboratory Tests 09/02/19 09/02/19 09/02/19 09:50 09:50 09:50 WBC 7.0 RBC 4.04 Hgb 13.1 Hct 39.4 MCV 97.4 H MCH 32.4 MCHC 33.2 RDW 14.1 D Plt Count 237 MPV 7.8 Sodium 140 Potassium 4.2 Chloride 104 Carbon Dioxide 28 Anion Gap 8 BUN 10.7 Creatinine 0.9 Est GFR (CKD-EPI)AfAm 99.94 Est GFR (CKD-EPI)NonAf 86.23 Random Glucose 108 H Calcium 8.8 Total Bilirubin 1.1 H AST 72 H ALT 73 H Alkaline Phosphatase 70 Total Protein 8.0 Albumin 4.2 Syphilis Serology Non-reactive covid-19 result pending Labs noted Alert o x 3 nad pt seen lying in bed but communicative and appropriate. Assessment: 09/03/19 11:52 withdrawal sx Plan: cont detox encourage increased po fluids as tolerated maintain safety Glucerna 1 can daily @ lunch
[2019-09-03] MEDS: NICOTINE 7 MG/24 HOURS TOPICAL PATCH TD SCH (10:44)
[2019-09-03] MEDS: PRENATAL VITAMINS W/ FOLIC ACID TABLET (FP) PO SCH (10:44)
[2019-09-03] MEDS: MELATONIN 5 MG TABLETS PO SCH (22:58)
[2019-09-03] MEDS: THIAMINE HCL 100 MG TABLET (FP) PO SCH (22:59)
[2019-09-04] MEDS: chlordiazePOXIDE HCL 25 MG CAPSULE PO SCH ×4 (07:48→22:36)
[2019-09-04] MEDS: hydrOXYzine PAMOATE 25 MG CAPSULE (FP) PO SCH ×5 (07:48→22:45)
[2019-09-04] MEDS: NICOTINE 7 MG/24 HOURS TOPICAL PATCH TD SCH (10:46)
[2019-09-04] MEDS: PRENATAL VITAMINS W/ FOLIC ACID TABLET (FP) PO SCH (10:46)
--- NOTE | 2019-09-04 15:17 | PN ---
S CIWA - CIWA Score Nausea/Vomitin-No Nausea/No Vomiting Muscle Tremors: 2 Anxiety: 4-Mod. Anxious/Guarded Agitation: 3 Paroxysmal Sweats: 1-Minimal Palms Moist Orientation: 0-Oriented Tacttile Disturbances: 0-None Auditory Disturbances: 0-None Visual Disturbances: 0-None Headache: 0-None Present CIWA-Ar Total Score: 10 BHS Progress Note (SOAP) Subjective: pt seen in bed. c/o intermittent sleep Eye sensitive to light(sleeps with towel over eyes) Objective: 09/04/19 15:19 Vital Signs - 24 hr 09/03/19 09/03/19 09/04/19 16:40 20:35 00:30 Temperature 98.2 F 97.7 F Pulse Rate 63 72 Respiratory 16 18 18 Rate Blood Pressure 154/87 122/82 O2 Sat by Pulse 96 Oximetry (%) 09/04/19 09/04/19 09/04/19 03:30 06:47 09:16 Temperature 97.4 F L 96.2 F L Pulse Rate 55 L 76 Respiratory 18 18 20 Rate Blood Pressure 119/67 114/72 O2 Sat by Pulse 95 Oximetry (%) Laboratory Tests 09/02/19 09/02/19 09/02/19 09:50 09:50 09:50 WBC 7.0 RBC 4.04 Hgb 13.1 Hct 39.4 MCV 97.4 H MCH 32.4 MCHC 33.2 RDW 14.1 D Plt Count 237 MPV 7.8 Sodium 140 Potassium 4.2 Chloride 104 Carbon Dioxide 28 Anion Gap 8 BUN 10.7 Creatinine 0.9 Est GFR (CKD-EPI)AfAm 99.94 Est GFR (CKD-EPI)NonAf 86.23 Random Glucose 108 H Calcium 8.8 Total Bilirubin 1.1 H AST 72 H ALT 73 H Alkaline Phosphatase 70 Total Protein 8.0 Albumin 4.2 Syphilis Serology Non-reactive Liver enzymes slightly elevated 'This provider called [facility] ED, transferred 3 x, verbally: COVID negative today, they are faxing results." (as per Dr. Vega's H/P document note). 09/04/19 15:26 Assessment: 09/04/19 15:26 withdrawal sx Plan: continue detox increase po fluids maintain safety
[2019-09-04 20:53] LABS: PH,URINE 6.5 (5.0-8.0); URINE APPEARANCE CLOUDY; URINE BILIRUBIN NEGATIVE (NEGATIVE); URINE COLOR YELLOW; URINE GLUCOSE (UA) NEGATIVE (NEGATIVE); URINE KETONE NEGATIVE (NEGATIVE); URINE LEUK ESTERASE NEGATIVE (NEGATIVE); URINE NITRITE NEGATIVE (NEGATIVE); URINE PROTEIN NEGATIVE (NEGATIVE)
[2019-09-04] MEDS: MELATONIN 5 MG TABLETS PO SCH (22:45)
[2019-09-04] MEDS: THIAMINE HCL 100 MG TABLET (FP) PO SCH (22:45)
[2019-09-05] MEDS ORDERED: chlordiazePOXIDE HCL 10 MG CAPSULE PO PRN
[2019-09-05] MEDS: chlordiazePOXIDE HCL 10 MG CAPSULE PO SCH ×4 (06:55→22:17)
[2019-09-05] MEDS: hydrOXYzine PAMOATE 25 MG CAPSULE (FP) PO SCH ×5 (06:55→21:15)
--- NOTE | 2019-09-05 10:11 | PN ---
S CIWA - CIWA Score Nausea/Vomitin-No Nausea/No Vomiting Muscle Tremors: 2 Anxiety: 2 Agitation: 0-Normal Activity Paroxysmal Sweats: 2 Orientation: 0-Oriented Tacttile Disturbances: 0-None Auditory Disturbances: 0-None Visual Disturbances: 0-None Headache: 2-Mild CIWA-Ar Total Score: 8 BHS Progress Note (SOAP) Subjective: c/o headache, mild shakes, anxiety, and sweats. Objective: 09/05/19 10:10 Vital Signs 09/05/19 09/05/19 06:20 08:40 Temperature 97.7 F 97.5 F L Pulse Rate 61 58 L Respiratory 16 17 Rate Blood Pressure 134/79 139/91 Laboratory Last Values WBC 7.0 K/mm3 (4.0-10.0) 09/02/19 09:50 RBC 4.04 M/mm3 (4.00-5.60) 09/02/19 09:50 Hgb 13.1 GM/dL (11.7-16.9) 09/02/19 09:50 Hct 39.4 % (35.4-49) 09/02/19 09:50 MCV 97.4 fl (80-96) H 09/02/19 09:50 MCH 32.4 pg (25.7-33.7) 09/02/19 09:50 MCHC 33.2 g/dl (32.0-35.9) 09/02/19 09:50 RDW 14.1 % (11.9-15.9) D 09/02/19 09:50 Plt Count 237 K/MM3 (134-434) 09/02/19 09:50 MPV 7.8 fl (7.5-11.1) 09/02/19 09:50 Sodium 140 mmol/L (136-145) 09/02/19 09:50 Potassium 4.2 mmol/L (3.5-5.1) 09/02/19 09:50 Chloride 104 mmol/L (98-107) 09/02/19 09:50 Carbon Dioxide 28 mmol/L (21-32) 09/02/19 09:50 Anion Gap 8 MMOL/L (8-16) 09/02/19 09:50 BUN 10.7 mg/dL (7-18) 09/02/19 09:50 Creatinine 0.9 mg/dL (0.55-1.3) 09/02/19 09:50 Est GFR (CKD-EPI)AfAm 99.94 09/02/19 09:50 Est GFR (CKD-EPI)NonAf 86.23 09/02/19 09:50 Random Glucose 108 mg/dL (74-106) H 09/02/19 09:50 Calcium 8.8 mg/dL (8.5-10.1) 09/02/19 09:50 Total Bilirubin 1.1 mg/dL (0.2-1) H 09/02/19 09:50 AST 72 U/L (15-37) H 09/02/19 09:50 ALT 73 U/L (13-61) H 09/02/19 09:50 Alkaline Phosphatase 70 U/L (45-117) 09/02/19 09:50 Total Protein 8.0 g/dl (6.4-8.2) 09/02/19 09:50 Albumin 4.2 g/dl (3.4-5.0) 09/02/19 09:50 Urine Color Yellow 09/04/19 18:25 Urine Appearance Cloudy 09/04/19 18:25 Urine pH 6.5 (5.0-8.0) 09/04/19 18:25 Ur Specific [place] 1.025 (1.010-1.035) 09/04/19 18:25 Urine Protein Negative (NEGATIVE) 09/04/19 18:25 Urine Glucose (UA) Negative (NEGATIVE) 09/04/19 18:25 Urine Ketones Negative (NEGATIVE) 09/04/19 18:25 Urine Blood Negative (NEGATIVE) 09/04/19 18:25 Urine Nitrite Negative (NEGATIVE) 09/04/19 18:25 Urine Bilirubin Negative (NEGATIVE) 09/04/19 18:25 Urine Urobilinogen 1.0 mg/dL (0.2-1.0) 09/04/19 18:25 Ur Leukocyte Esterase Negative (NEGATIVE) 09/04/19 18:25 Syphilis Serology Non-reactive (NONREACTIVE) 09/02/19 09:50 Labs noted. Assessment: 09/05/19 10:10 AOX3, in no acute respiratory distress. Full ROM, ambulating in the unit. Withdrawal symptoms. Plan: continue detox.
[2019-09-05] MEDS: NICOTINE 7 MG/24 HOURS TOPICAL PATCH TD SCH (10:36)
[2019-09-05] MEDS: PRENATAL VITAMINS W/ FOLIC ACID TABLET (FP) PO SCH (10:36)
[2019-09-05] MEDS: MELATONIN 5 MG TABLETS PO SCH (21:15)
[2019-09-05] MEDS: THIAMINE HCL 100 MG TABLET (FP) PO SCH (21:15)
[2019-09-06] MEDS: chlordiazePOXIDE HCL 10 MG CAPSULE PO SCH ×2 (06:46→17:31)
[2019-09-06] MEDS: hydrOXYzine PAMOATE 25 MG CAPSULE (FP) PO SCH ×5 (06:47→21:45)
[2019-09-06] MEDS: PRENATAL VITAMINS W/ FOLIC ACID TABLET (FP) PO SCH (10:39)
[2019-09-06] MEDS: NICOTINE 7 MG/24 HOURS TOPICAL PATCH TD SCH (10:39)
--- NOTE | 2019-09-06 14:36 | PN ---
S CIWA - CIWA Score Nausea/Vomitin-Mild Nausea/No Vomiting Muscle Tremors: 1-None Visible, but [place] Anxiety: 1-Mildly Anxious Agitation: 0-Normal Activity Paroxysmal Sweats: No Perspiration Orientation: 0-Oriented Tacttile Disturbances: 1-Very Mild Itch/Numbness Auditory Disturbances: 0-None Visual Disturbances: 1-Very Mild Sensitivity Headache: 0-None Present CIWA-Ar Total Score: 5 S Progress Note (SOAP) Subjective: 69 years old male admitted on 09/02/19 for alcohol withdrawal sx management treating with librium detox regiment feeling better today ambulating with cane slow steady gaits less tremor mild anxiety discussing aftercare with staff that [facility] as alcohol recovery facility Objective: 09/06/19 14:41 Vital Signs - 24 hr 09/05/19 09/05/19 09/06/19 16:43 20:25 00:30 Temperature 98.2 F 97.3 F L Pulse Rate 73 82 Respiratory 17 17 18 Rate Blood Pressure 107/61 122/64 O2 Sat by Pulse 97 Oximetry (%) 09/06/19 09/06/19 09/06/19 03:30 06:11 08:05 Temperature 97.8 F 97.1 F L Pulse Rate 63 68 Respiratory 18 18 18 Rate Blood Pressure 111/78 128/62 O2 Sat by Pulse Oximetry (%) 09/06/19 12:35 Temperature 98 F Pulse Rate 74 Respiratory 18 Rate Blood Pressure 113/79 O2 Sat by Pulse 96 Oximetry (%) Laboratory Tests 09/02/19 09/02/19 09/02/19 09:50 09:50 09:50 WBC 7.0 RBC 4.04 Hgb 13.1 Hct 39.4 MCV 97.4 H MCH 32.4 MCHC 33.2 RDW 14.1 D Plt Count 237 MPV 7.8 Sodium 140 Potassium 4.2 Chloride 104 Carbon Dioxide 28 Anion Gap 8 BUN 10.7 Creatinine 0.9 Est GFR (CKD-EPI)AfAm 99.94 Est GFR (CKD-EPI)NonAf 86.23 Random Glucose 108 H Calcium 8.8 Total Bilirubin 1.1 H AST 72 H ALT 73 H Alkaline Phosphatase 70 Total Protein 8.0 Albumin 4.2 Urine Color Urine Appearance Urine pH Ur Specific [place] Urine Protein Urine Glucose (UA) Urine Ketones Urine Blood Urine Nitrite Urine Bilirubin Urine Urobilinogen Ur Leukocyte Esterase Syphilis Serology Non-reactive 09/04/19 18:25 WBC RBC Hgb Hct MCV MCH MCHC RDW Plt Count MPV Sodium Potassium Chloride Carbon Dioxide Anion Gap BUN Creatinine Est GFR (CKD-EPI)AfAm Est GFR (CKD-EPI)NonAf Random Glucose Calcium Total Bilirubin AST ALT Alkaline Phosphatase Total Protein Albumin Urine Color Yellow Urine Appearance Cloudy Urine pH 6.5 Ur Specific [place] 1.025 Urine Protein Negative Urine Glucose (UA) Negative Urine Ketones Negative Urine Blood Negative Urine Nitrite Negative Urine Bilirubin Negative Urine Urobilinogen 1.0 Ur Leukocyte Esterase Negative Syphilis Serology Assessment: 09/06/19 14:43 alcohol withdrawal Plan: librium regimen
[2019-09-06] MEDS: MELATONIN 5 MG TABLETS PO SCH (21:44)
[2019-09-06] MEDS: THIAMINE HCL 100 MG TABLET (FP) PO SCH (21:45)
[2019-09-07] MEDS ORDERED: chlordiazePOXIDE HCL 10 MG CAPSULE PO ONE (05:00)
[2019-09-07 06:34] VITALS: TEMP 97.4
[2019-09-07] MEDS: hydrOXYzine PAMOATE 25 MG CAPSULE (FP) PO SCH ×2 (06:53→10:31)
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
[2019-09-07] MEDS: NICOTINE 7 MG/24 HOURS TOPICAL PATCH TD SCH (10:31)
[2019-09-07] MEDS: PRENATAL VITAMINS W/ FOLIC ACID TABLET (FP) PO SCH (10:31)
[2019-09-07 10:41] VITALS: BP 111/78; PULSE 68
== END 2019-09-07 11:10 | disposition other institution (70) | DRG 775 ==
LOC: YASAS 08:46 → Y5N DETOX 09:20
PROVIDERS: ADMIT Allergy & Immunology; ATTEND Allergy & Immunology
PROC: HZ2ZZZZ Detoxification Services for Substance Abuse Treatment (ICD-10-PCS; principal; 2019-09-02)
DX: F10.230 Alcohol dependence with withdrawal, uncomplicated (principal); F12.20 Cannabis dependence, uncomplicated; F17.211 Nicotine dependence, cigarettes, in remission; H54.61 Unqualified visual loss, right eye, normal vision left eye; H26.9 Unspecified cataract; B18.2 Chronic viral hepatitis C; M17.10 Unilateral primary osteoarthritis, unspecified knee; R26.81 Unsteadiness on feet; Z99.89 Dependence on other enabling machines and devices; Z98.890 Other specified postprocedural states; Z59.0 Homelessness
CPT/HCPCS: 36415; 80053; 81003; 85027; 86780

== ENCOUNTER 2019-09-07 11:30 | Inpatient (IN) | payer OTHER ==
[2019-09-07] MEDS ORDERED: LOPERAMIDE HCL 2 MG CAPSULE PO PRN (14:07)
[2019-09-07] MEDS ORDERED: IBUPROFEN 400 MG TABLET (FP) PO PRN (14:07)
[2019-09-07] MEDS ORDERED: ACETAMINOPHEN 325 MG TABLET (FP) PO PRN (14:07)
[2019-09-07] MEDS ORDERED: P-EPHED 60MG/TRIPROLIDI 2.5MG TABLET PO PRN (14:07)
[2019-09-07] MEDS ORDERED: hydrOXYzine PAMOATE 25 MG CAPSULE (FP) PO PRN (14:07)
[2019-09-07] MEDS ORDERED: MAG HYDROX/AL HYDROX/SIMETH 30 ML UNIT-DOSE CUP PO PRN (14:07)
[2019-09-07] MEDS ORDERED: NICOTINE POLACRILEX 2 MG GUM BUC PRN (14:07)
[2019-09-07] MEDS ORDERED: guaiFENesin 200 MG/10 ML 10 ML UNIT-DOSE CUPS PO PRN (14:07)
[2019-09-07] MEDS ORDERED: MAGNESIUM HYDROX 2400MG/30ML ORAL SUSPENSION 30 ML CUP PO PRN (14:07)
[2019-09-07] MEDS ORDERED: MAGNESIUM CITRATE 300 ML BOTTLE PO PRN (14:07)
[2019-09-07] MEDS ORDERED: MENTHOL/PHENOL 1 EACH UD MM PRN (14:07)
--- NOTE | 2019-09-07 14:10 | HP ---
[facility] Rehab Assess/Revision - Vital signs Vital Signs: Vital Signs Period Temp Pulse Resp BP Sys/Schaeffer Pulse Ox Last 24 Hr 97.7 F 59 18 113/79 - Findings Detox History & Physical reviewed: Yes Concur with findings: Yes Comments/Additional Findings: Pt completed detox on and referred to rehab for aftercare. Inpatient Rehab Admission - Rehab Decision to Admit Inpatient rehab admission?: Yes - Initial Determination Are CD services needed?: Yes Free of communicable disease: Yes Not in need of hospitalization: Yes - Rehab Admission Criteria Previous failed treatment: Yes Poor recovery environment: Yes Comorbidities: Yes Lacks judgement: Yes Patient is meeting Inpatient Rehab admission criteria:: Yes
[2019-09-07] MEDS: THIAMINE HCL 100 MG TABLET (FP) PO SCH (21:49)
[2019-09-07] MEDS: MELATONIN 5 MG TABLETS PO SCH (21:49)
[2019-09-08] MEDS: PRENATAL VITAMINS W/ FOLIC ACID TABLET (FP) PO SCH (10:29)
[2019-09-08] MEDS: MELATONIN 5 MG TABLETS PO SCH (21:32)
[2019-09-08] MEDS: THIAMINE HCL 100 MG TABLET (FP) PO SCH (21:32)
[2019-09-09] MEDS: PRENATAL VITAMINS W/ FOLIC ACID TABLET (FP) PO SCH (10:26)
[2019-09-09] MEDS: MELATONIN 5 MG TABLETS PO SCH (21:31)
[2019-09-09] MEDS: THIAMINE HCL 100 MG TABLET (FP) PO SCH (21:31)
[2019-09-10] MEDS: PRENATAL VITAMINS W/ FOLIC ACID TABLET (FP) PO SCH (10:16)
[2019-09-10] MEDS: MELATONIN 5 MG TABLETS PO SCH (22:01)
[2019-09-10] MEDS: THIAMINE HCL 100 MG TABLET (FP) PO SCH (22:01)
[2019-09-11] MEDS: PRENATAL VITAMINS W/ FOLIC ACID TABLET (FP) PO SCH (10:14)
[2019-09-11] MEDS: THIAMINE HCL 100 MG TABLET (FP) PO SCH (21:28)
[2019-09-11] MEDS: MELATONIN 5 MG TABLETS PO SCH (21:28)
[2019-09-12] MEDS: PRENATAL VITAMINS W/ FOLIC ACID TABLET (FP) PO SCH (10:20)
[2019-09-12] MEDS: MELATONIN 5 MG TABLETS PO SCH (21:40)
[2019-09-12] MEDS: THIAMINE HCL 100 MG TABLET (FP) PO SCH (21:40)
[2019-09-13] MEDS: PRENATAL VITAMINS W/ FOLIC ACID TABLET (FP) PO SCH (10:39)
[2019-09-13] MEDS: THIAMINE HCL 100 MG TABLET (FP) PO SCH (21:37)
[2019-09-13] MEDS: MELATONIN 5 MG TABLETS PO SCH (21:37)
[2019-09-14] MEDS: PRENATAL VITAMINS W/ FOLIC ACID TABLET (FP) PO SCH (10:45)
[2019-09-14] MEDS: MELATONIN 5 MG TABLETS PO SCH (22:30)
[2019-09-14] MEDS: THIAMINE HCL 100 MG TABLET (FP) PO SCH (22:30)
[2019-09-15] MEDS: PRENATAL VITAMINS W/ FOLIC ACID TABLET (FP) PO SCH (10:18)
[2019-09-15] MEDS: THIAMINE HCL 100 MG TABLET (FP) PO SCH (21:59)
[2019-09-15] MEDS: MELATONIN 5 MG TABLETS PO SCH (21:59)
[2019-09-16] MEDS: PRENATAL VITAMINS W/ FOLIC ACID TABLET (FP) PO SCH (10:34)
[2019-09-16] MEDS: THIAMINE HCL 100 MG TABLET (FP) PO SCH (21:36)
[2019-09-16] MEDS: MELATONIN 5 MG TABLETS PO SCH (21:36)
[2019-09-17] MEDS: PRENATAL VITAMINS W/ FOLIC ACID TABLET (FP) PO SCH (10:47)
[2019-09-17] MEDS: THIAMINE HCL 100 MG TABLET (FP) PO SCH (21:54)
[2019-09-17] MEDS: MELATONIN 5 MG TABLETS PO SCH (21:54)
[2019-09-18] MEDS: PRENATAL VITAMINS W/ FOLIC ACID TABLET (FP) PO SCH (10:28)
[2019-09-18] MEDS: THIAMINE HCL 100 MG TABLET (FP) PO SCH (22:13)
[2019-09-18] MEDS: MELATONIN 5 MG TABLETS PO SCH (22:13)
[2019-09-19] MEDS: PRENATAL VITAMINS W/ FOLIC ACID TABLET (FP) PO SCH (10:29)
[2019-09-19] MEDS: MELATONIN 5 MG TABLETS PO SCH (21:56)
[2019-09-19] MEDS: THIAMINE HCL 100 MG TABLET (FP) PO SCH (21:56)
[2019-09-20] MEDS: PRENATAL VITAMINS W/ FOLIC ACID TABLET (FP) PO SCH (10:33)
[2019-09-20] MEDS: THIAMINE HCL 100 MG TABLET (FP) PO SCH (21:27)
[2019-09-20] MEDS: MELATONIN 5 MG TABLETS PO SCH (21:27)
[2019-09-21] MEDS: PRENATAL VITAMINS W/ FOLIC ACID TABLET (FP) PO SCH (10:49)
[2019-09-21] MEDS: MELATONIN 5 MG TABLETS PO SCH (21:42)
[2019-09-21] MEDS: THIAMINE HCL 100 MG TABLET (FP) PO SCH (21:42)
[2019-09-22] MEDS: PRENATAL VITAMINS W/ FOLIC ACID TABLET (FP) PO SCH (10:45)
[2019-09-22] MEDS: THIAMINE HCL 100 MG TABLET (FP) PO SCH (21:35)
[2019-09-22] MEDS: MELATONIN 5 MG TABLETS PO SCH (21:35)
[2019-09-23] MEDS: PRENATAL VITAMINS W/ FOLIC ACID TABLET (FP) PO SCH (10:12)
[2019-09-23] MEDS: MELATONIN 5 MG TABLETS PO SCH (23:05)
[2019-09-23] MEDS: THIAMINE HCL 100 MG TABLET (FP) PO SCH (23:05)
[2019-09-24] MEDS: PRENATAL VITAMINS W/ FOLIC ACID TABLET (FP) PO SCH (10:38)
[2019-09-24] MEDS: MELATONIN 5 MG TABLETS PO SCH (21:54)
[2019-09-24] MEDS: THIAMINE HCL 100 MG TABLET (FP) PO SCH (21:54)
[2019-09-25] MEDS: PRENATAL VITAMINS W/ FOLIC ACID TABLET (FP) PO SCH (10:51)
[2019-09-25] MEDS: MELATONIN 5 MG TABLETS PO SCH (21:53)
[2019-09-25] MEDS: THIAMINE HCL 100 MG TABLET (FP) PO SCH (21:53)
[2019-09-26] MEDS: PRENATAL VITAMINS W/ FOLIC ACID TABLET (FP) PO SCH (10:16)
[2019-09-26] MEDS: MELATONIN 5 MG TABLETS PO SCH (22:19)
[2019-09-26] MEDS: THIAMINE HCL 100 MG TABLET (FP) PO SCH (22:19)
[2019-09-27] MEDS: PRENATAL VITAMINS W/ FOLIC ACID TABLET (FP) PO SCH (09:24)
[2019-09-27] MEDS: THIAMINE HCL 100 MG TABLET (FP) PO SCH (22:24)
[2019-09-27] MEDS: MELATONIN 5 MG TABLETS PO SCH (22:24)
[2019-09-28] MEDS: PRENATAL VITAMINS W/ FOLIC ACID TABLET (FP) PO SCH (11:19)
[2019-09-28] MEDS: THIAMINE HCL 100 MG TABLET (FP) PO SCH (22:09)
[2019-09-28] MEDS: MELATONIN 5 MG TABLETS PO SCH (22:09)
[2019-09-29] MEDS: PRENATAL VITAMINS W/ FOLIC ACID TABLET (FP) PO SCH (10:27)
[2019-09-29] MEDS: MELATONIN 5 MG TABLETS PO SCH (22:11)
[2019-09-29] MEDS: THIAMINE HCL 100 MG TABLET (FP) PO SCH (22:11)
[2019-09-30] MEDS: PRENATAL VITAMINS W/ FOLIC ACID TABLET (FP) PO SCH (10:01)
[2019-09-30] MEDS: MELATONIN 5 MG TABLETS PO SCH (21:41)
[2019-09-30] MEDS: THIAMINE HCL 100 MG TABLET (FP) PO SCH (21:41)
[2019-10-01] MEDS: PRENATAL VITAMINS W/ FOLIC ACID TABLET (FP) PO SCH (09:07)
[2019-10-01] MEDS: THIAMINE HCL 100 MG TABLET (FP) PO SCH (21:13)
[2019-10-01] MEDS: MELATONIN 5 MG TABLETS PO SCH (21:13)
[2019-10-02] MEDS: PRENATAL VITAMINS W/ FOLIC ACID TABLET (FP) PO SCH (10:02)
[2019-10-02] MEDS: THIAMINE HCL 100 MG TABLET (FP) PO SCH (21:25)
[2019-10-02] MEDS: MELATONIN 5 MG TABLETS PO SCH (21:25)
[2019-10-03] MEDS: PRENATAL VITAMINS W/ FOLIC ACID TABLET (FP) PO SCH (09:57)
[2019-10-03] MEDS: MELATONIN 5 MG TABLETS PO SCH (21:35)
[2019-10-03] MEDS: THIAMINE HCL 100 MG TABLET (FP) PO SCH (21:35)
[2019-10-04] MEDS: PRENATAL VITAMINS W/ FOLIC ACID TABLET (FP) PO SCH (09:16)
[2019-10-04] MEDS: MELATONIN 5 MG TABLETS PO SCH (21:30)
[2019-10-04] MEDS: THIAMINE HCL 100 MG TABLET (FP) PO SCH (21:30)
[2019-10-05 06:34] VITALS: BP 127/85; PULSE 80; TEMP 97.1
--- NOTE | 2019-10-05 09:58 | DS ---
[facility] Rehab Discharge Summary - [facility] Rehab Discharge Summary Admission Date: 09/07/19 Discharge Date: 10/05/19 - History Present History: Alcohol dependence, Cannabis dependence - Discharge Physical Exam Vital Signs: Vital Signs Temperature 97.1 F L 10/05/19 06:33 Pulse Rate 80 10/05/19 06:33 Respiratory Rate 18 10/05/19 06:33 Blood Pressure 127/85 10/05/19 06:33 O2 Sat by Pulse Oximetry (%) 96 10/05/19 06:33 Ambulatory Orders NK [No Known Home Medication] 07/31/19 ROS: DENIES CHEST PAIN, SOB, SHAKES, HEADACHES AND SWEATING PE: ALERT AND ORIENTED X 3 SKIN WARM AND DRY NECK SUPPLE, NO JVD CAR S1S2, RRR RESP CTA BL EXT FULL ROM, AMB AD KEYA NO TREMORS DENIES SI/HI A/P: ALCOHOL DEPENDENCE CANNABIS USE PATIENT MEDICALLY STABLE FOR D/C AFTERCARE ARRANGED FOR [facility] 10/06/2019 12:30PM - Treatment Discharge Condition: Discharge condition good Hospital Course: PATIENT COMPLETED REHAB TODAY FOR ALCOHOL DEPENDENCE. DURING COURSE OF TREATMENT, PATIENT ATTENDED GROUP MEETINGS AND 1:1 SESSIONS WITH COUNSELOR. PATIENT IS MEDICALLY STABLE AT THIS TIME AND DENIES SI/HI. AFTERCARE ARRANGED FOR [facility], APPT 10/06/2019. PATIENT MEDICALLY ADVISED TO FOLLOW UP WITH OUTPATIENT PROGRAM TO MAINTAIN SOBRIETY AND FOLLOW UP WITH PCP RECOMMENDED. - Medication Discharge Medications: Ambulatory Orders NK [No Known Home Medication] 07/31/19 - Medication-Assisted Treatment (MAT) Medication-Assisted Treatment (MAT): No MAT Follow-up Referral: [facility], APPT 10/06/2019 - Discharge Instructions Diet, activity, other medical instructions: Diet: REG TOLERATED Activity: AD KEYA Other medical instructions: F/U WITH PCP RECOMMENDED - Follow-up Referral Minutes to complete discharge: 35 - AMA Did Patient Leave Against Medical Advice: No
[2019-10-05] MEDS: PRENATAL VITAMINS W/ FOLIC ACID TABLET (FP) PO SCH (10:16)
== END 2019-10-05 09:38 | disposition home or self-care (01) | DRG 772 ==
LOC: YASAS 11:30 → Y3W 11:31
PROVIDERS: ADMIT Allergy & Immunology; ATTEND Allergy & Immunology
PROC: HZ42ZZZ Group Counseling for Substance Abuse Treatment, Cognitive-Behavioral (ICD-10-PCS; principal; 2019-09-07)
DX: F10.20 Alcohol dependence, uncomplicated (principal); F12.20 Cannabis dependence, uncomplicated; H54.40 Blindness, one eye, unspecified eye; B18.2 Chronic viral hepatitis C; R76.11 Nonspecific reaction to tuberculin skin test without active tuberculosis; R26.2 Difficulty in walking, not elsewhere classified; Z99.89 Dependence on other enabling machines and devices; Z59.0 Homelessness; Z87.891 Personal history of nicotine dependence

== ENCOUNTER 2020-06-14 12:47 | Inpatient (IN) | payer OTHER ==
[2020-06-14 13:42] VITALS: BMI 26.7
[2020-06-14] MEDS ORDERED: MAGNESIUM CITRATE 300 ML BOTTLE PO PRN (17:40)
[2020-06-14] MEDS ORDERED: MAG HYDROX/AL HYDROX/SIMETH 30 ML UNIT-DOSE CUP PO PRN (17:40)
[2020-06-14] MEDS ORDERED: IBUPROFEN 400 MG TABLET (FP) PO PRN (17:40)
[2020-06-14] MEDS ORDERED: ACETAMINOPHEN 325 MG TABLET (FP) PO PRN (17:40)
[2020-06-14] MEDS ORDERED: MAGNESIUM HYDROX 2400MG/30ML ORAL SUSPENSION 30 ML CUP PO PRN (17:40)
[2020-06-14] MEDS ORDERED: guaiFENesin 200 MG/10 ML 10 ML UNIT-DOSE CUPS PO PRN (17:40)
[2020-06-14] MEDS ORDERED: LOPERAMIDE HCL 2 MG CAPSULE PO PRN (17:40)
[2020-06-14] MEDS ORDERED: P-EPHED 60MG/TRIPROLIDI 2.5MG TABLET PO PRN (17:40)
[2020-06-14] MEDS: MELATONIN 5 MG TABLETS PO SCH (23:14)
[2020-06-14] MEDS: THIAMINE HCL 100 MG TABLET (FP) PO SCH (23:14)
[2020-06-15] MEDS: PRENATAL VITAMINS W/ FOLIC ACID TABLET (FP) PO SCH (10:24)
[2020-06-15 14:54] LABS: EPI CELLS 6 /uL (0-25.1); HYALINE CASTS 0 /uL (0-3.1); PH,URINE >= 9.0 (5.0-8.0); URINE APPEARANCE CLEAR; URINE BACTERIA 715 /uL (0-1359); URINE BILIRUBIN NEGATIVE (NEGATIVE); URINE COLOR YELLOW; URINE GLUCOSE (UA) NEGATIVE (NEGATIVE); URINE KETONE NEGATIVE (NEGATIVE); URINE LEUK ESTERASE TRACE (NEGATIVE); URINE NITRITE NEGATIVE (NEGATIVE); URINE PROTEIN NEGATIVE (NEGATIVE); URINE RBC 6 /uL (0-23.9); URINE WBC 4 /uL (0-25.8)
[2020-06-15] MEDS: MELATONIN 5 MG TABLETS PO SCH (21:45)
[2020-06-15] MEDS: THIAMINE HCL 100 MG TABLET (FP) PO SCH (21:45)
[2020-06-16] MEDS: PRENATAL VITAMINS W/ FOLIC ACID TABLET (FP) PO SCH (10:15)
[2020-06-16] MEDS: THIAMINE HCL 100 MG TABLET (FP) PO SCH (22:08)
[2020-06-16] MEDS: MELATONIN 5 MG TABLETS PO SCH (22:08)
[2020-06-17] MEDS: PRENATAL VITAMINS W/ FOLIC ACID TABLET (FP) PO SCH (10:47)
[2020-06-17] MEDS: MELATONIN 5 MG TABLETS PO SCH (22:38)
[2020-06-17] MEDS: THIAMINE HCL 100 MG TABLET (FP) PO SCH (22:38)
[2020-06-18] MEDS: PRENATAL VITAMINS W/ FOLIC ACID TABLET (FP) PO SCH (09:16)
[2020-06-18 14:07] LABS: SARS-CoV-2 NAA Not Detected (Not Detected)
[2020-06-18] MEDS: MELATONIN 5 MG TABLETS PO SCH (22:48)
[2020-06-18] MEDS: THIAMINE HCL 100 MG TABLET (FP) PO SCH (22:48)
[2020-06-19] MEDS: PRENATAL VITAMINS W/ FOLIC ACID TABLET (FP) PO SCH (09:23)
[2020-06-19] MEDS: THIAMINE HCL 100 MG TABLET (FP) PO SCH (21:45)
[2020-06-19] MEDS: MELATONIN 5 MG TABLETS PO SCH (21:45)
[2020-06-20] MEDS: PRENATAL VITAMINS W/ FOLIC ACID TABLET (FP) PO SCH (11:32)
[2020-06-20] MEDS: THIAMINE HCL 100 MG TABLET (FP) PO SCH (22:10)
[2020-06-20] MEDS: MELATONIN 5 MG TABLETS PO SCH (22:10)
[2020-06-21] MEDS: PRENATAL VITAMINS W/ FOLIC ACID TABLET (FP) PO SCH (10:28)
[2020-06-21] MEDS: MELATONIN 5 MG TABLETS PO SCH (23:00)
[2020-06-21] MEDS: THIAMINE HCL 100 MG TABLET (FP) PO SCH (23:00)
[2020-06-22] MEDS: PRENATAL VITAMINS W/ FOLIC ACID TABLET (FP) PO SCH (10:48)
[2020-06-22] MEDS: MELATONIN 5 MG TABLETS PO SCH (22:13)
[2020-06-22] MEDS: THIAMINE HCL 100 MG TABLET (FP) PO SCH (22:13)
[2020-06-23] MEDS: PRENATAL VITAMINS W/ FOLIC ACID TABLET (FP) PO SCH (10:07)
[2020-06-23] MEDS: THIAMINE HCL 100 MG TABLET (FP) PO SCH (21:51)
[2020-06-23] MEDS: MELATONIN 5 MG TABLETS PO SCH (21:51)
[2020-06-24] MEDS: PRENATAL VITAMINS W/ FOLIC ACID TABLET (FP) PO SCH (10:36)
[2020-06-24] MEDS: MELATONIN 5 MG TABLETS PO SCH (21:55)
[2020-06-24] MEDS: THIAMINE HCL 100 MG TABLET (FP) PO SCH (21:55)
[2020-06-25] MEDS: PRENATAL VITAMINS W/ FOLIC ACID TABLET (FP) PO SCH (10:23)
[2020-06-25] MEDS: MELATONIN 5 MG TABLETS PO SCH (21:47)
[2020-06-25] MEDS: THIAMINE HCL 100 MG TABLET (FP) PO SCH (21:47)
[2020-06-26] MEDS: PRENATAL VITAMINS W/ FOLIC ACID TABLET (FP) PO SCH (10:21)
[2020-06-26] MEDS: THIAMINE HCL 100 MG TABLET (FP) PO SCH (21:50)
[2020-06-26] MEDS: MELATONIN 5 MG TABLETS PO SCH (21:50)
[2020-06-27] MEDS: PRENATAL VITAMINS W/ FOLIC ACID TABLET (FP) PO SCH (09:47)
[2020-06-27] MEDS: THIAMINE HCL 100 MG TABLET (FP) PO SCH (21:34)
[2020-06-27] MEDS: MELATONIN 5 MG TABLETS PO SCH (21:34)
[2020-06-28] MEDS: PRENATAL VITAMINS W/ FOLIC ACID TABLET (FP) PO SCH (10:12)
[2020-06-28] MEDS: MELATONIN 5 MG TABLETS PO SCH (21:29)
[2020-06-28] MEDS: THIAMINE HCL 100 MG TABLET (FP) PO SCH (21:29)
[2020-06-29] MEDS: PRENATAL VITAMINS W/ FOLIC ACID TABLET (FP) PO SCH (10:20)
[2020-06-29] MEDS: THIAMINE HCL 100 MG TABLET (FP) PO SCH (21:40)
[2020-06-29] MEDS: MELATONIN 5 MG TABLETS PO SCH (21:40)
[2020-06-30] MEDS: PRENATAL VITAMINS W/ FOLIC ACID TABLET (FP) PO SCH (10:05)
[2020-06-30] MEDS ORDERED: MASKS NR ONE (10:23)
[2020-06-30] MEDS: THIAMINE HCL 100 MG TABLET (FP) PO SCH (21:58)
[2020-06-30] MEDS: MELATONIN 5 MG TABLETS PO SCH (21:58)
[2020-07-01] MEDS: PRENATAL VITAMINS W/ FOLIC ACID TABLET (FP) PO SCH (09:48)
[2020-07-01] MEDS: MELATONIN 5 MG TABLETS PO SCH (21:42)
[2020-07-01] MEDS: THIAMINE HCL 100 MG TABLET (FP) PO SCH (21:43)
[2020-07-02] MEDS: PRENATAL VITAMINS W/ FOLIC ACID TABLET (FP) PO SCH (09:25)
[2020-07-02] MEDS: MELATONIN 5 MG TABLETS PO SCH (22:37)
[2020-07-02] MEDS: THIAMINE HCL 100 MG TABLET (FP) PO SCH (22:38)
[2020-07-03] MEDS: PRENATAL VITAMINS W/ FOLIC ACID TABLET (FP) PO SCH (09:13)
[2020-07-03] MEDS: MELATONIN 5 MG TABLETS PO SCH (21:31)
[2020-07-03] MEDS: THIAMINE HCL 100 MG TABLET (FP) PO SCH (21:31)
[2020-07-04] MEDS: PRENATAL VITAMINS W/ FOLIC ACID TABLET (FP) PO SCH (09:50)
[2020-07-04] MEDS: MELATONIN 5 MG TABLETS PO SCH (21:51)
[2020-07-04] MEDS: THIAMINE HCL 100 MG TABLET (FP) PO SCH (21:51)
[2020-07-05] MEDS: PRENATAL VITAMINS W/ FOLIC ACID TABLET (FP) PO SCH (10:23)
[2020-07-05] MEDS: MELATONIN 5 MG TABLETS PO SCH (21:52)
[2020-07-05] MEDS: THIAMINE HCL 100 MG TABLET (FP) PO SCH (21:52)
[2020-07-06] MEDS: PRENATAL VITAMINS W/ FOLIC ACID TABLET (FP) PO SCH (10:34)
[2020-07-06] MEDS: THIAMINE HCL 100 MG TABLET (FP) PO SCH (21:33)
[2020-07-06] MEDS: MELATONIN 5 MG TABLETS PO SCH (21:33)
[2020-07-07] MEDS: PRENATAL VITAMINS W/ FOLIC ACID TABLET (FP) PO SCH (11:08)
[2020-07-07] MEDS: THIAMINE HCL 100 MG TABLET (FP) PO SCH (21:59)
[2020-07-07] MEDS: MELATONIN 5 MG TABLETS PO SCH (21:59)
[2020-07-08] MEDS: PRENATAL VITAMINS W/ FOLIC ACID TABLET (FP) PO SCH (10:27)
[2020-07-08] MEDS: MELATONIN 5 MG TABLETS PO SCH (21:43)
[2020-07-08] MEDS: THIAMINE HCL 100 MG TABLET (FP) PO SCH (21:43)
[2020-07-09] MEDS: PRENATAL VITAMINS W/ FOLIC ACID TABLET (FP) PO SCH (10:27)
[2020-07-09] MEDS: THIAMINE HCL 100 MG TABLET (FP) PO SCH (22:00)
[2020-07-09] MEDS: MELATONIN 5 MG TABLETS PO SCH (22:00)
[2020-07-10] MEDS: PRENATAL VITAMINS W/ FOLIC ACID TABLET (FP) PO SCH (10:12)
[2020-07-10] MEDS: MELATONIN 5 MG TABLETS PO SCH (21:53)
[2020-07-10] MEDS: THIAMINE HCL 100 MG TABLET (FP) PO SCH (21:53)
[2020-07-11 07:14] VITALS: BP 144/79; PULSE 66; TEMP 97.9
[2020-07-11] MEDS: PRENATAL VITAMINS W/ FOLIC ACID TABLET (FP) PO SCH (10:24)
[2020-07-11] MEDS: THIAMINE HCL 100 MG TABLET (FP) PO SCH (22:03)
[2020-07-11] MEDS: MELATONIN 5 MG TABLETS PO SCH (22:03)
== END 2020-07-12 09:40 | disposition home or self-care (01) | DRG 772 ==
LOC: YASAS 12:47 → Y3W 18:38
PROVIDERS: ADMIT Allergy & Immunology; ATTEND Allergy & Immunology
PROC: HZ42ZZZ Group Counseling for Substance Abuse Treatment, Cognitive-Behavioral (ICD-10-PCS; principal; 2020-06-14)
DX: F10.20 Alcohol dependence, uncomplicated (principal); F12.20 Cannabis dependence, uncomplicated; F17.210 Nicotine dependence, cigarettes, uncomplicated; H54.61 Unqualified visual loss, right eye, normal vision left eye; H26.9 Unspecified cataract; M17.12 Unilateral primary osteoarthritis, left knee; B18.2 Chronic viral hepatitis C; R76.11 Nonspecific reaction to tuberculin skin test without active tuberculosis; Z99.89 Dependence on other enabling machines and devices; Z59.0 Homelessness
CPT/HCPCS: 81003; 93005; 93010; C9803; U0003; U0005